=== PATIENT | female | born 1975 | race Two or more races ===

== ENCOUNTER 2017-03-18 22:39 | Emergency (ER) | payer OTHER ==
[~2017-03-18] VITALS: Ht 165.1 cm; Wt 65.0 kg
[2017-03-18 23:50] LABS: BLOOD UREA NITROGEN 10 mg/dL (7-18)
[2017-03-19 00:01] LABS: HEMATOCRIT 39.7 % (34.6-47.8); HEMOGLOBIN 13.5 g/dL (11.7-16.4); WHITE BLOOD COUNT 5.8 x10^3/uL (3.4-10)
[2017-03-19 00:02] LABS: IS PT STATUS REG ER OR PRE ER? YES
[2017-03-19 01:03] VITALS: BP 111/68
== END 2017-03-19 01:04 | disposition home or self-care (01) ==
LOC: ED 03-19 00:57
DX: R53.1 Weakness (principal); R05 Cough; R06.00 Dyspnea, unspecified
CPT/HCPCS: 36415; 71010; 80048; 82040; 84484; 85025; 93005; 99285